=== PATIENT | female | born 1980 | race Hispanic/Latino ===

== ENCOUNTER 2021-04-12 03:54 | Day surgery (SDC) | payer MEDICAID ==
[2021-04-12] MEDS ORDERED: Lidocaine 1% PF 5 ML VIAL ONE (09:46)
[2021-04-12] MEDS ORDERED: PROPOFOL 200 MG/20 ML VIAL ONE (09:46)
[2021-04-12] MEDS ORDERED: Dexamethasone 20 MG/5 ML VIAL ONE (09:46)
[2021-04-12] MEDS ORDERED: Rocuronium Bromide 10 MG/ML (10ML VIAL) ONE (09:46)
[2021-04-12] MEDS ORDERED: Ondansetron PF 4 MG/2 ML Vial ONE (09:46)
[2021-04-12] MEDS ORDERED: Glycopyrrolate 0.2 MG/ML 5 ML SYRINGE ONE (09:46)
[2021-04-12] MEDS ORDERED: Succinylcholine 200 MG/10 ml SYRINGE FS ONE (09:46)
== END 2021-04-12 11:15 | disposition home or self-care (01) ==
LOC: ERS 03:54 → SDC 09:17
PROVIDERS: ATTEND Internal Medicine Gastroenterology
PROC: 0DC38ZZ Extirpation of Matter from Lower Esophagus, Via Natural or Artificial Opening Endoscopic (ICD-10-PCS; principal; 2021-04-12)
DX: T18.128A Food in esophagus causing other injury, initial encounter (principal); K22.2 Esophageal obstruction; J45.909 Unspecified asthma, uncomplicated; E66.3 Overweight; X58.XXXA Exposure to other specified factors, initial encounter; Z86.711 Personal history of pulmonary embolism; Z79.01 Long term (current) use of anticoagulants
CPT/HCPCS: J1100; J2405; J2704